=== PATIENT | female | born 1995 | race Caucasian/White ===

== ENCOUNTER 2017-05-16 15:45 | Emergency (ER) | payer MEDICAID ==
[2017-05-16] MEDS ORDERED: LIDOCAINE 2% VISCOUS 15 ML UDCUP PO ONE (16:13)
[2017-05-16] MEDS ORDERED: MAG HYDROX/AL HYDROX/SIMETH 30 ML UDCUP PO ONE (16:13)
[2017-05-16] MEDS ORDERED: FAMOTIDINE 20 MG in NS 100 ML IV ONE (16:13)
[2017-05-16] MEDS ORDERED: ONDANSETRON 4 MG/2 ML VIAL IVP ONE (16:13)
[2017-05-16] MEDS ORDERED: NS 1,000 ML IV ONE (16:13)
[2017-05-16] MEDS ORDERED: HYOSCYAMINE SULFATE 0.125 MG TAB PO ONE (16:13)
--- NOTE | 2017-05-16 16:22 | EDPHY ---
H & P Time Seen by Provider: 05/16/17 16:01 HPI/ROS: CHIEF COMPLAINT: Abdominal pain HISTORY OF PRESENT ILLNESS: Patient is a 21-year-old female who presents emergency department with epigastric abdominal pain. Patient states her pain started this morning after breakfast. She ate a skillet at the [facility]. She began to have an "uneasy feeling". This progressed to epigastric discomfort. It is waxing and waning. She had 1 episode of nonbloody emesis. No diarrhea. No fevers or chills. No shortness of breath or chest pain. She took a Zofran at home. REVIEW OF SYSTEMS: My complete review of systems is negative except as mentioned in the HPI. Past Medical/Surgical History: Includes migraine Past surgical history: Includes tonsillectomy, cholecystectomy Social history: The patient had half a glass of wine 2 days ago. No other alcohol use. She does not smoke. Smoking Status: Never smoked Physical Exam: 36.7, 134/107, 87, 16, 96% on room air GENERAL: Well-appearing, in no acute distress, alert. HEENT: Eyes normal to inspection, normal pharynx, no signs of dehydration. NECK: No thyromegaly, no lymphadenopathy, supple. RESPIRATORY: Clear to auscultation bilaterally, no rales, rhonchi or wheezing. CVS: Regular rate and rhythm, no rubs, murmurs, or gallops. ABDOMEN: Soft, mild epigastric tenderness to palpation with no rebound or guarding, nondistended, no organomegaly. BACK: Normal to inspection, no CVA tenderness. SKIN: Normal color, no rash, warm, dry. No pallor. EXTREMITIES: No pedal edema, no calf tenderness, no Homans sign or cords, no joint swelling. NEURO/PSYCH: Alert and oriented, normal mood and affect, normal motor sensory exam. Constitutional: Initial Vital Signs Temperature (C) 36.7 C 05/16/17 15:52 Heart Rate 87 05/16/17 15:52 Respiratory Rate 16 05/16/17 15:52 Blood Pressure 134/107 H 05/16/17 15:52 O2 Sat (%) 96 05/16/17 15:52 O2 Delivery Mode Room Air Allergies/Adverse Reactions: No Known Allergies Allergy (Verified 05/16/17 15:55) Home Medications: Medication Instructions Recorded Acyclovir 05/16/17 Amitriptyline HCl 05/16/17 Medical Decision Making ED Course/Re-evaluation: In the emergency department I discussed possible etiologies with the patient. I answered her questions. IV was placed. Patient given normal saline 1 L IV for hydration. She was given Pepcid 20 mg IV and a GI cocktail for her discomfort. She is given Zofran 4 mg IV for nausea. Laboratory studies were ordered. Patient had a mildly elevated white count of 12. Chemistry panel is unremarkable. Her total bilirubin was mildly elevated at 1.6. AST and ALT were normal. Lipase was normal. Preg negative. 1704: I discussed the results with the patient. I answered all her questions. Patient states she was feeling "much better." On repeat exam her abdomen was soft, nontender and nondistended. Differential Diagnosis: My differential includes but is not limited to pancreatitis, retained stone, cholangitis, esophagitis, GERD, hiatal hernia, dissection, aneurysm, small- bowel obstruction, perforation, ectopic - Data Points Laboratory Results: Laboratory Results 05/16/17 16:25 05/16/17 16:25 05/16/17 05/16/17 05/16/17 16:25 16:25 16:25 WBC 12.17 10^3/uL H 10^3/uL (3.80-9.50) RBC 4.94 10^6/uL 10^6/uL (4.18-5.33) Hgb 14.9 g/dL g/dL (12.6-16.3) Hct 40.6 % % (38.0-47.0) MCV 82.2 fL fL (81.5-99.8) MCH 30.2 pg pg (27.9-34.1) MCHC 36.7 g/dL g/dL (32.4-36.7) RDW 11.5 % % (11.5-15.2) Plt Count 329 10^3/uL 10^3/uL (150-400) MPV 8.5 fL L fL (8.7-11.7) Neut % (Auto) 76.0 % H % (39.3-74.2) Lymph % (Auto) 17.2 % % (15.0-45.0) Burnett % (Auto) 5.1 % % (4.5-13.0) Eos % (Auto) 1.3 % % (0.6-7.6) Baso % (Auto) 0.2 % L % (0.3-1.7) Nucleat RBC Rel Count 0.0 % % (0.0-0.2) Absolute Neuts (auto) 9.24 10^3/uL H 10^3/uL (1.70-6.50) Absolute Lymphs (auto) 2.09 10^3/uL 10^3/uL (1.00-3.00) Absolute Monos (auto) 0.62 10^3/uL 10^3/uL (0.30-0.80) Absolute Eos (auto) 0.16 10^3/uL 10^3/uL (0.03-0.40) Absolute Basos (auto) 0.03 10^3/uL 10^3/uL (0.02-0.10) Absolute Nucleated RBC 0.00 10^3/uL 10^3/uL (0-0.01) Immature Gran % 0.2 % % (0.0-1.1) Immature Gran # 0.03 10^3/uL 10^3/uL (0.00-0.10) Sodium 140 mEq/L mEq/L (134-144) Potassium 4.0 mEq/L mEq/L (3.5-5.2) Chloride 110 mEq/L mEq/L (97-110) Carbon Dioxide 17 mEq/l L mEq/l (22-31) Anion Gap 13 mEq/L mEq/L (8-16) BUN 15 mg/dL mg/dL (7-23) Creatinine 0.6 mg/dL mg/dL (0.6-1.0) Estimated GFR > 60 Glucose 118 mg/dL H mg/dL (70-100) Calcium 8.9 mg/dL mg/dL (8.5-10.4) Total Bilirubin 1.6 mg/dL H mg/dL (0.1-1.4) Conjugated Bilirubin 0.3 mg/dL mg/dL (0.0-0.5) Unconjugated Bilirubin 1.3 mg/dL H mg/dL (0.0-1.1) AST 28 IU/L IU/L (14-46) ALT 44 IU/L IU/L (9-52) Alkaline Phosphatase 96 IU/L IU/L (38-126) Total Protein 6.9 g/dL g/dL (6.3-8.2) Albumin 3.8 g/dL g/dL (3.5-5.0) Lipase 64.0 IU/L IU/L (23-300) Beta HCG, Qual NEGATIVE Medications Given: Discontinued Medications Al Hydroxide/Mg Hydroxide (Maalox Susp) 30 ml PO ONCE ONE Stop: 05/16/17 16:14 Last Admin: 05/16/17 16:34 Dose: 30 ml Hyoscyamine Sulfate (Levsin, Hyomax-Sl) 0.25 mg PO ONCE ONE Stop: 05/16/17 16:14 Last Admin: 05/16/17 16:26 Dose: 0.25 mg Sodium Chloride (Ns) 1,000 mls @ 0 mls/hr IV ONCE ONE; Wide Open PRN Reason: Protocol Stop: 05/16/17 16:14 Last Admin: 05/16/17 16:15 Dose: 1,000 mls Famotidine 20 mg/ Sodium (Chloride) 102 mls @ 408 mls/hr IV EDNOW ONE Stop: 05/16/17 16:27 Last Admin: 05/16/17 16:25 Dose: 102 mls Lidocaine (Lidocaine 2% Viscous) 15 ml PO ONCE ONE Stop: 05/16/17 16:14 Last Admin: 05/16/17 16:34 Dose: 15 ml Ondansetron HCl (Zofran) 4 mg IVP EDNOW ONE Stop: 05/16/17 16:14 Last Admin: 05/16/17 16:20 Dose: 4 mg Departure - Departure Disposition: Home, Routine, Self-Care Clinical Impression: Abdominal pain Qualifiers: Abdominal location: epigastric Qualified Code(s): R10.13 - Epigastric pain Vomiting Qualifiers: Vomiting type: unspecified Vomiting Intractability: non-intractable Nausea presence: with nausea Qualified Code(s): R11.2 - Nausea with vomiting, unspecified Condition: Good Instructions: Acute Nausea and Vomiting (ED), Abdominal Pain (ED) Additional Instructions: Return with increasing pain, fever, vomiting or any other concerns. You need close follow-up with her primary care physician to recheck your liver function tests. Your total bilirubin was minimally elevated. Referrals: Lenore Hills MD [Medical Doctor] - 5-7 days, call for appt.
[2017-05-16 16:33] LABS: % IMMATURE GRANULYOCYTES 0.2 % (0.0-1.1); ABSOLUTE IMMATURE GRANULOCYTES 0.03 10^3/uL (0.00-0.10); ADD DIFF? NO; ADD MORPH? NO; ADD SCAN? NO; ATYPICAL LYMPHOCYTE FLAG 10 (0-99); FRAGMENT RBC FLAG 0 (0-99); HEMATOCRIT 40.6 % (38.0-47.0); HEMOGLOBIN 14.9 g/dL (12.6-16.3); LEFT SHIFT FLG 0 (0-99); LIPEMIA HEMOLYSIS FLAG 90 (0-99); MEAN CELL HEMOGLOBIN 30.2 pg (27.9-34.1); MEAN CELL HEMOGLOBIN CONCENTR. 36.7 g/dL (32.4-36.7); MEAN CELL VOLUME 82.2 fL (81.5-99.8); MEAN PLATELET VOLUME 8.5 fL (8.7-11.7); PLATELET CLUMPS FLAG 0 (0-99); PLATELET COUNT 329 10^3/uL (150-400); RED BLOOD CELL COUNT 4.94 10^6/uL (4.18-5.33); RED CELL DISTRIBUTION WIDTH 11.5 % (11.5-15.2)
[2017-05-16 16:47] LABS: ALANINE AMINOTRANSFERASE 44 IU/L (9-52); ALBUMIN 3.8 g/dL (3.5-5.0); ALKALINE PHOSPHATASE 96 IU/L (38-126); ASPARTATE AMINOTRANSFERASE 28 IU/L (14-46); BILIRUBIN,TOTAL 1.6 mg/dL (0.1-1.4); BILIRUBIN-CONJUGATED 0.3 mg/dL (0.0-0.5); BILIRUBIN-UNCONJUGATED 1.3 mg/dL (0.0-1.1); CALCIUM 8.9 mg/dL (8.5-10.4); CARBON DIOXIDE 17 mEq/l (22-31); CHLORIDE 110 mEq/L (97-110); CREATININE 0.6 mg/dL (0.6-1.0); GLOMERULAR FILTRATION RATE > 60; GLUCOSE 118 mg/dL (70-100); SODIUM 140 mEq/L (134-144); TOTAL PROTEIN 6.9 g/dL (6.3-8.2)
[2017-05-16 16:53] LABS: ANION GAP 13 mEq/L (8-16)
[2017-05-16 17:35] LABS: COLOR YELLOW; LEUKOCYTE ESTERASE,URINE NEGATIVE (NEGATIVE); NITRITE,URINE NEGATIVE (NEGATIVE); PH,URINE 5.5 (5.0-7.5)
[2017-05-16 17:44] LABS: BACTERIA TRACE /hpf (NONE SEEN); MUCUS 2+ /lpf (NONE-1+); RBC,URINE OCCASIONAL /hpf (0-3); WBC,URINE NONE SEEN /hpf (0-3)
[2017-05-16 18:01] VITALS: BP 108/62; PULSE 76; RESP 16; TEMP 98.6; O2SAT 97
== END 2017-05-16 17:55 | disposition home or self-care (01) ==
LOC: CED 15:45
DX: R10.13 Epigastric pain (principal); R11.2 Nausea with vomiting, unspecified; E86.9 Volume depletion, unspecified; Z90.49 Acquired absence of other specified parts of digestive tract
CPT/HCPCS: 80048-PO; 80076-PO; 81003-PO; 81015-PO; 83690-PO; 84703-PO; 85025-PO; 96374; J2405

== ENCOUNTER 2017-12-30 22:50 | Emergency (ER) | payer MEDICAID ==
--- NOTE | 2017-12-30 23:00 | EDPHY ---
H & P HPI/ROS: CHIEF COMPLAINT: Unable to remove tampon HISTORY OF PRESENT ILLNESS: 20-year-old female reports placing a tampon today. She went to exchange this evening however found to be oriented horizontally and thus unable to be retrieved. She feels well otherwise except for mild right upper quadrant discomfort that she feels is from eating. It is not like the discomfort she had this past May associated with dyspepsia. She does have a remote history of cholecystectomy at age 12. Fever none Chills none abdominal pain see above Exposure: REVIEW OF SYSTEMS: Gastrointestinal: No vomiting. 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 Smoking Status: Never smoked Physical Exam: External Genitalia: normal shaved no lesions no vesicles Vaginal Canal: no lesions no discharge there is a foreign body present in the vault that is horizontally oriented that is compatible tampon. This was successfully snared and removed with a ring forceps. She tolerated this well. No complications. Cervix: Mild blood at the os Internal: Foreign body found and removed as noted above Constitutional: Initial Vital Signs Temperature (C) 37.1 C 12/30/17 23:01 Heart Rate 82 12/30/17 23:01 Respiratory Rate 16 12/30/17 23:01 Blood Pressure 110/66 12/30/17 23:01 O2 Sat (%) 97 12/30/17 23:01 O2 Delivery Mode Room Air Allergies/Adverse Reactions: No Known Allergies Allergy (Verified 12/30/17 22:58) Home Medications: Medication Instructions Recorded Bcp 12/30/17 Medical Decision Making ED Course/Re-evaluation: For motor removed with ring forceps as noted in the physical exam Differential Diagnosis: Diagnostic considerations include, but are not limited to, the following: Foreign body in the vagina, vaginal abrasions, UTI Departure - Departure Disposition: Home, Routine, Self-Care Clinical Impression: Vaginal foreign body Qualifiers: Encounter type: initial encounter Qualified Code(s): T19.2XXA - Foreign body in vulva and vagina, initial encounter Condition: Good Instructions: Vaginal Foreign Body (ED) Additional Instructions: No further care is necessary. You may douche, though there is no medical reason for such. Further, you may go ahead and use another tampon at your discretion. Referrals: Lenore Hills MD [Primary Care Provider] - As per Instructions
[2017-12-30 23:03] VITALS: BP 110/66; PULSE 82; RESP 16; TEMP 98.8; O2SAT 97
== END 2017-12-30 23:22 | disposition home or self-care (01) ==
LOC: CED 22:50
DX: T19.2XXA Foreign body in vulva and vagina, initial encounter (principal); Z90.49 Acquired absence of other specified parts of digestive tract; X58.XXXA Exposure to other specified factors, initial encounter

== ENCOUNTER → 2019-03-12 | Outpatient (CLI) | payer OTHER | LOC: FIMAGING 09:10 | PROVIDERS: ATTEND Obstetrics & Gynecology | DX: Z13.89 Encounter for screening for other disorder (principal) ==